=== PATIENT | male | born 1995 | race Caucasian/White ===

== ENCOUNTER 2016-06-18 22:59 | Emergency (ER) | payer OTHER ==
[~2016-06-18] VITALS: Ht 177.8 cm; Wt 63.5 kg
[~2016-06-18 22:59] MED LIST: MEDROL DOSEPAK4 MG PO; MOTRIN400 MG PO; MOTRIN800 MG PO; OMEPRAZOLE40 MG PO; TAMIFLU75 MG PO; TYLENOL W/CODEI1 TA2 PO; ZITHROMAX Z PA250 MG PO
[2016-06-18 23:48] LABS: BASO # 0.1 10*3/uL (0.0-0.1); BASO % 0.5 % (0.0-1.0); EOS # 0.2 10*3/uL (0.0-0.4); EOS % 1.4 % (1.0-4.0); HEMATOCRIT 42.1 % (42.0-52.0); HEMOGLOBIN 14.5 g/dl (14.0-18.0); IG # 0.1 10*3/uL (0.0-0.1); LYMPH # 1.8 10*3/uL (1.3-4.4); LYMPH % 15.9 % (27.0-41.0); MEAN CELL VOLUME 85.9 fl (80.0-94.0); MEAN CORPUSCULAR HGB 29.6 pg (27.0-31.0); MEAN CORPUSCULAR HGB CONC 34.4 g/dl (33.0-37.0); MEAN PLATELET VOLUME 9.2 fl (9.6-12.3); MONO # 1.1 10*3/uL (0.1-1.0); MONO % 10.1 % (3.0-9.0); NEUT # 7.9 10*3/uL (2.3-7.9); NEUT % 70.8 % (47.0-73.0); PLATELET COUNT AUTOMATED 192 10*3/uL (130-400); RED CELL DISTRI WIDTH 12.4 % (0-14.5); WHITE BLOOD COUNT 11.1 10*3/uL (4.8-10.8)
[2016-06-19 00:06] LABS: ALBUMIN 3.8 gm/dl (3.1-4.5); ALKALINE PHOSPHATASE 130 U/L (45-117); BILIRUBIN, TOTAL 0.3 mg/dl (0.2-1.0); BUN 9 mg/dl (7-24); CARBON DIOXIDE 25 mmol/L (21-32); CHLORIDE 103 mmol/L (98-107); CPK 209 U/L (39-308); EST GLOM FILT AFRICAN AMERICAN > 60 ml/min; GLUCOSE 85 mg/dL (65-99); POTASSIUM 3.3 mmol/L (3.5-5.1); SGOT/AST 69 IU/L (3-35); SGPT/ALT 89 U/L (12-78); SODIUM 140 mmol/L (136-145); TOTAL PROTEIN 8.1 gm/dL (6.4-8.2)
[2016-06-19 00:07] LABS: CKMB 2.5 ng/ml (0.5-3.6); TROPONIN I 0.018 ng/ml (<0.045)
[2016-06-19 00:24] LABS: BILIRUBIN NEGATIVE (NEGATIVE); BLOOD NEGATIVE (NEGATIVE); CLARITY CLEAR (CLEAR); COLOR YELLOW (YELLOW); GLUCOSE NEGATIVE (NEGATIVE); KETONE NEGATIVE (NEGATIVE); LEUKO ESTERASE NEGATIVE (NEGATIVE); NITRITE NEGATIVE (NEGATIVE); PROTEIN NEGATIVE (NEGATIVE); SPECIFIC GRAVITY <= 1.005 (1.005-1.030); UROBILINOGEN 0.2 E.U./dl (0.2-1.0)
[2016-06-19 00:34] LABS: URINE REFLEX COMMENT NO (NO)
[2016-06-19 00:37] LABS: URINE AMPHETAMINES < 1000 (1000ng/ml); URINE BARBITURATES < 200 (200ng/ml); URINE COCAINE > 300 (300ng/ml)
[2016-06-19 06:16] VITALS: BP 116/63
[2016-06-19] MEDS ORDERED: ZOFRAN ODT4 MG SL (08:55)
== END 2016-06-19 08:58 | disposition home or self-care (01) ==
LOC: ED 22:59
PROVIDERS: Physician Assistant
DX: F19.10 Other psychoactive substance abuse, uncomplicated (principal); F10.129 Alcohol abuse with intoxication, unspecified; F17.200 Nicotine dependence, unspecified, uncomplicated

== ENCOUNTER 2016-06-30 23:36 | Inpatient (IN) | payer OTHER ==
[~2016-06-30] VITALS: Ht 172.7 cm; Wt 64.6 kg
[~2016-06-30 23:36] MED LIST changes: +ZOFRAN ODT4 MG SL
[2016-06-30 23:41] VITALS: BP 145/84
[2016-07-01] VITALS (8 sets, daily range): BP systolic 93–136; BP diastolic 54–94
[2016-07-01 00:01] LABS: BILIRUBIN 1+ (NEGATIVE); BLOOD NEGATIVE (NEGATIVE); CLARITY CLEAR (CLEAR); COLOR YELLOW (YELLOW); GLUCOSE NEGATIVE (NEGATIVE); KETONE NEGATIVE (NEGATIVE); LEUKO ESTERASE NEGATIVE (NEGATIVE); NITRITE NEGATIVE (NEGATIVE); PROTEIN 1+ (NEGATIVE)
[2016-07-01 00:06] LABS: HEMATOCRIT 37.9 % (42.0-52.0); MEAN CELL VOLUME 86.5 fl (80.0-94.0); MEAN CORPUSCULAR HGB 29.7 pg (27.0-31.0); MEAN CORPUSCULAR HGB CONC 34.3 g/dl (33.0-37.0); MEAN PLATELET VOLUME 9.2 fl (9.6-12.3); PLATELET COUNT AUTOMATED 200 10*3/uL (130-400); RED BLOOD COUNT 4.38 10*6/uL (4.50-5.90); RED CELL DISTRI WIDTH 12.9 % (0-14.5); WHITE BLOOD COUNT 20.8 10*3/uL (4.8-10.8)
[2016-07-01 00:14] LABS: BACTERIA TRACE; URINE AMPHETAMINES < 1000 (1000ng/ml); URINE BARBITURATES < 200 (200ng/ml); URINE COCAINE < 300 (300ng/ml); URINE REFLEX COMMENT YES (NO); WBC 16-20 wbc/hpf (0-5)
[2016-07-01 00:20] LABS: ALBUMIN 3.3 gm/dl (3.1-4.5); ALKALINE PHOSPHATASE 218 U/L (45-117); BILIRUBIN, TOTAL 0.8 mg/dl (0.2-1.0); BUN 9 mg/dl (7-24); CARBON DIOXIDE 30 mmol/L (21-32); CHLORIDE 101 mmol/L (98-107); EST GLOM FILT AFRICAN AMERICAN > 60 ml/min; GLUCOSE 152 mg/dL (65-99); POTASSIUM 3.1 mmol/L (3.5-5.1); SGOT/AST 99 IU/L (3-35); SGPT/ALT 153 U/L (12-78); SODIUM 139 mmol/L (136-145); TOTAL PROTEIN 7.5 gm/dL (6.4-8.2)
[2016-07-01 00:25] LABS: EOSINOPHIL # 0.2 10*3/uL (0-0.4); EOSINOPHILS 1 % (1-4); LYMPHOCYTE # 1.2 10*3/uL (1.3-4.4); MONOCYTE # 1.9 10*3/uL (0.1-1.0); NEUTROPHIL # 17.5 10*3/uL (2.3-7.9); NEUTROPHILS 84 % (47-73); PLATELET SUFFICIENCY NORMAL (NORMAL); TOTAL CELLS COUNTED 100 #CELLS
[2016-07-01 02:51] LABS: LA>2 REFLEX 2 HR DRAW NOW
[2016-07-01 05:53] LABS: BASO # 0.1 10*3/uL (0.0-0.1); BASO % 0.3 % (0.0-1.0); EOS # 0.1 10*3/uL (0.0-0.4); EOS % 0.7 % (1.0-4.0); HEMATOCRIT 35.4 % (42.0-52.0); HEMOGLOBIN 11.7 g/dl (14.0-18.0); IG # 0.1 10*3/uL (0.0-0.1); LYMPH # 1.9 10*3/uL (1.3-4.4); MEAN CELL VOLUME 88.7 fl (80.0-94.0); MEAN CORPUSCULAR HGB 29.3 pg (27.0-31.0); MEAN CORPUSCULAR HGB CONC 33.1 g/dl (33.0-37.0); MEAN PLATELET VOLUME 10.1 fl (9.6-12.3); MONO # 1.3 10*3/uL (0.1-1.0); MONO % 8.1 % (3.0-9.0); NEUT # 12.1 10*3/uL (2.3-7.9); NEUT % 78.4 % (47.0-73.0); PLATELET COUNT AUTOMATED 187 10*3/uL (130-400); RED BLOOD COUNT 3.99 10*6/uL (4.50-5.90); RED CELL DISTRI WIDTH 12.9 % (0-14.5); WHITE BLOOD COUNT 15.5 10*3/uL (4.8-10.8)
[2016-07-01 06:11] LABS: ALBUMIN 2.9 gm/dl (3.1-4.5); ALKALINE PHOSPHATASE 187 U/L (45-117); BILIRUBIN, TOTAL 0.5 mg/dl (0.2-1.0); BUN 10 mg/dl (7-24); CARBON DIOXIDE 31 mmol/L (21-32); CHLORIDE 111 mmol/L (98-107); EST GLOM FILT AFRICAN AMERICAN > 60 ml/min; GLUCOSE 87 mg/dL (65-99); POTASSIUM 3.7 mmol/L (3.5-5.1); SGOT/AST 69 IU/L (3-35); SGPT/ALT 125 U/L (12-78); SODIUM 147 mmol/L (136-145); TOTAL PROTEIN 6.7 gm/dL (6.4-8.2)
[2016-07-02] VITALS: BP 114/51
[2016-07-02 07:07] LABS: HEPATITIS C VIRUS ANTIBODY <0.1 s/co (0.0-0.9); HIV 1+2 AB + HIV1 P24 AG Non Reactive (Non Reactive)
[2016-07-02 08:00] VITALS: BP 101/55
[2016-07-02 12:00] VITALS: BP 94/67
[2016-07-02 16:00] VITALS: BP 114/58
[2016-07-02 20:00] VITALS: BP 122/72
[2016-07-03] VITALS: BP 111/57
[2016-07-03 08:00] VITALS: BP 95/51
[2016-07-03 12:00] VITALS: BP 102/57
[2016-07-03 16:00] VITALS: BP 130/66
[2016-07-03 20:00] VITALS: BP 106/58
[2016-07-04] VITALS: BP 120/65
[2016-07-04 08:00] VITALS: BP 110/60
[2016-07-04] MEDS ORDERED: METHOCARBAMOL750 M1 PO (11:07)
[2016-07-04] MEDS ORDERED: ATARAX,VISTARIL50 MG PO (11:07)
[2016-07-04] MEDS ORDERED: SINEMET 25-1001 TA1 PO (11:12)
== END 2016-07-04 11:40 | disposition home or self-care (01) | DRG 897 ==
LOC: ED 23:36 → EDHOLD 07-01 01:06 → 5E 07-01 01:06
PROVIDERS: Hospitalist; Nurse Practitioner Family
DX: F11.23 Opioid dependence with withdrawal (principal); E87.2 Acidosis; D72.829 Elevated white blood cell count, unspecified; F17.200 Nicotine dependence, unspecified, uncomplicated; F19.10 Other psychoactive substance abuse, uncomplicated; Z82.49 Family history of ischemic heart disease and other diseases of the circulatory system

== ENCOUNTER 2016-07-11 15:56 | Inpatient (IN) | payer OTHER ==
[~2016-07-11] VITALS: Ht 172.7 cm; Wt 60.5 kg
--- NOTE | ~2016-07-11 | CON ---
[place], [place] REPORT OF CONSULTATION NAME: NICA MCGOVERN UNIT #: [id number] ROOM: [id number] DOCTOR: NICKIE BOYD ED.D (STEPHAN) BIRTHDATE: [birth year] DOS: 07/12/2016 HISTORY OF PRESENT ILLNESS: The patient is a 20-year-old male referred by the hospitalist for psychological evaluation. At the present time, this patient is a [facility] patient here at [facility] on 5th floor. This patient is single and has no children. His parents are both living and he has one sister. He was formerly working at [employer], but has recently been laid off. He does not have a family physician. His medical history is pertinent for opiate withdrawal, opiate dependence, crack cocaine abuse and tobacco abuse. He denies any drug allergies. He states he is not taking any regular medications. This patient was awake, alert and oriented in all 3 spheres and denied any suicidal ideation or plan. He did not have any active hallucinations or delusional thoughts. States he was discharged from [facility] approximately 1 week ago, but after he went home, he used crack cocaine. He then came back to the hospital for further treatment and followup treatment. He would like to go to "[facility]" for treatment after he is discharged from the hospital. He is very willing to get treatment. Dr. Infante did diagnose this patient with bipolar disorder and prescribed Lamictal and Celexa but at this point in time I am not willing to recommend any kind of medications until he is through withdrawal. In my opinion, he should follow up outpatient with psychotherapy and medication management once he is discharged. DIAGNOSES: 1. Opiate addiction. 2. Opiate withdrawal. 3. Cocaine abuse. RECOMMENDATIONS: The patient should follow up outpatient with substance abuse treatment as well as mental health treatment. Thank you very much for this consult. NICKIE BOYD ED.D CM:CONSTR:REPORT OF CONSULTATION 1131 07/13/16 [id number]
[~2016-07-11 15:56] MED LIST changes: +ATARAX,VISTARIL50 MG PO; +METHOCARBAMOL750 M1 PO; +SINEMET 25-1001 TA1 PO
[2016-07-11 16:00] VITALS: BP 119/77
[2016-07-11 17:00] VITALS: BP 119/77
[2016-07-11 17:25] LABS: BASO % 0.5 % (0.0-1.0); EOS # 0.1 10*3/uL (0.0-0.4); EOS % 1.2 % (1.0-4.0); HEMATOCRIT 41.9 % (42.0-52.0); HEMOGLOBIN 14.1 g/dl (14.0-18.0); IG # 0.1 10*3/uL (0.0-0.1); LYMPH # 1.6 10*3/uL (1.3-4.4); LYMPH % 21.2 % (27.0-41.0); MEAN CELL VOLUME 87.7 fl (80.0-94.0); MEAN CORPUSCULAR HGB 29.5 pg (27.0-31.0); MEAN CORPUSCULAR HGB CONC 33.7 g/dl (33.0-37.0); MEAN PLATELET VOLUME 9.4 fl (9.6-12.3); MONO # 0.6 10*3/uL (0.1-1.0); MONO % 8.3 % (3.0-9.0); NEUT # 5.1 10*3/uL (2.3-7.9); NEUT % 68.1 % (47.0-73.0); PLATELET COUNT AUTOMATED 286 10*3/uL (130-400); RED BLOOD COUNT 4.78 10*6/uL (4.50-5.90); RED CELL DISTRI WIDTH 13.1 % (0-14.5); WHITE BLOOD COUNT 7.5 10*3/uL (4.8-10.8)
[2016-07-11 17:32] LABS: PROTHROMBIN TIME 10.9 SECONDS (9.0-12.4)
[2016-07-11 17:45] LABS: ALKALINE PHOSPHATASE 146 U/L (45-117); BILIRUBIN, TOTAL 0.4 mg/dl (0.2-1.0); BUN 13 mg/dl (7-24); CARBON DIOXIDE 25 mmol/L (21-32); CHLORIDE 109 mmol/L (98-107); EST GLOM FILT AFRICAN AMERICAN > 60 ml/min; GLUCOSE 96 mg/dL (65-99); SGOT/AST 26 IU/L (3-35); SODIUM 142 mmol/L (136-145); TOTAL PROTEIN 8.5 gm/dL (6.4-8.2)
[2016-07-11 17:48] LABS: SGPT/ALT 18 U/L (12-78)
[2016-07-11 20:00] VITALS: BP 134/77
[2016-07-11 21:31] LABS: BILIRUBIN NEGATIVE (NEGATIVE); BLOOD NEGATIVE (NEGATIVE); CLARITY SL CLOUDY (CLEAR); COLOR YELLOW (YELLOW); GLUCOSE NEGATIVE (NEGATIVE); KETONE NEGATIVE (NEGATIVE); LEUKO ESTERASE NEGATIVE (NEGATIVE); NITRITE NEGATIVE (NEGATIVE); PH 5.5 (5.0-9.0); PROTEIN TRACE (NEGATIVE); SPECIFIC GRAVITY >= 1.030 (1.005-1.030); UROBILINOGEN 0.2 E.U./dl (0.2-1.0)
[2016-07-11 21:37] LABS: RBC 0-2 rbc/hpf (0-2)
[2016-07-11 21:38] LABS: BACTERIA TRACE; EPITHELIAL CELLS 0-2; URINE REFLEX COMMENT YES (NO)
[2016-07-11 21:39] LABS: URINE AMPHETAMINES < 1000 (1000ng/ml); URINE BARBITURATES < 200 (200ng/ml); URINE COCAINE > 300 (300ng/ml)
[2016-07-12 04:00] VITALS: BP 127/69
[2016-07-12 07:58] VITALS: BP 106/62
[2016-07-12 12:00] VITALS: BP 115/66
[2016-07-12 16:00] VITALS: BP 118/56
[2016-07-12 20:00] VITALS: BP 106/62
[2016-07-13] VITALS: BP 104/51
[2016-07-13 08:00] VITALS: BP 107/50
== END 2016-07-13 10:43 | disposition left against medical advice (07) | DRG 894 ==
LOC: 5E 15:56
PROVIDERS: Internal Medicine Hospice and Palliative Medicine
DX: F11.23 Opioid dependence with withdrawal (principal); F14.10 Cocaine abuse, uncomplicated; Z53.21 Procedure and treatment not carried out due to patient leaving prior to being seen by health care provider; F41.9 Anxiety disorder, unspecified; G25.81 Restless legs syndrome; F17.200 Nicotine dependence, unspecified, uncomplicated; L40.9 Psoriasis, unspecified; Z71.6 Tobacco abuse counseling; Z82.49 Family history of ischemic heart disease and other diseases of the circulatory system

== ENCOUNTER 2016-07-23 01:17 | Emergency (ER) | payer OTHER ==
[~2016-07-23] VITALS: Ht 172.7 cm; Wt 59.0 kg
[2016-07-23 02:29] VITALS: BP 112/75
== END 2016-07-23 03:20 | disposition home or self-care (01) ==
LOC: ED 01:17
DX: T40.4X1A Poisoning by other synthetic narcotics, accidental (unintentional), initial encounter (principal); Y92.9 Unspecified place or not applicable; F41.9 Anxiety disorder, unspecified; F17.200 Nicotine dependence, unspecified, uncomplicated

== ENCOUNTER 2019-04-06 22:18 | Emergency (ER) | payer OTHER ==
[~2019-04-06] VITALS: Ht 175.2 cm; Wt 68.0 kg
[2019-04-06 22:56] LABS: BASO % 0.3 % (0.0-1.0); EOS # 0.2 10*3/uL (0.0-0.4); EOS % 1.4 % (1.0-4.0); HEMATOCRIT 41.1 % (42.0-52.0); HEMOGLOBIN 13.8 g/dl (14.0-18.0); LYMPH # 1.8 10*3/uL (1.3-4.4); MEAN CELL VOLUME 90.1 fl (80.0-94.0); MEAN CORPUSCULAR HGB 30.3 pg (27.0-31.0); MEAN CORPUSCULAR HGB CONC 33.6 g/dl (33.0-37.0); MEAN PLATELET VOLUME 10.8 fl (9.6-12.3); MONO # 0.6 10*3/uL (0.1-1.0); MONO % 5.3 % (3.0-9.0); NEUT # 9.2 10*3/uL (2.3-7.9); NEUT % 77.6 % (47.0-73.0); PLATELET COUNT AUTOMATED 210 10*3/uL (130-400); RED BLOOD COUNT 4.56 10*6/uL (4.50-5.90); RED CELL DISTRI WIDTH 11.9 % (0-14.5); WHITE BLOOD COUNT 11.8 10*3/uL (4.8-10.8)
[2019-04-06 23:11] LABS: ALBUMIN 4.3 gm/dl (3.1-4.5); ALKALINE PHOSPHATASE 81 U/L (45-117); BUN 12 mg/dl (7-24); CHLORIDE 102 mmol/L (98-107); CREATININE 1.13 mg/dL (0.70-1.30); POTASSIUM 3.7 mmol/L (3.5-5.1); SGOT/AST 37 IU/L (3-35); SGPT/ALT 74 U/L (12-78); SODIUM 137 mmol/L (136-145); TOTAL PROTEIN 7.4 gm/dL (6.4-8.2)
[2019-04-06 23:13] LABS: ACETAMINOPHEN (TYLENOL) < 5.0 ug/ml (10-30); ETHYL ALCOHOL < 3.0 mg/dl (<3)
[2019-04-06 23:46] LABS: URINE AMPHETAMINES < 1000 (1000ng/ml); URINE BARBITURATES < 200 (200ng/ml); URINE BENZODIAZEPINES < 200 (200ng/ml); URINE CANNABINOIDS (THC) < 50 (50ng/ml); URINE COCAINE < 300 (300ng/ml); URINE METHADONE < 300 (300ng/ml); URINE OPIATES > 300 (300ng/ml)
[2019-04-06 23:48] LABS: URINE PHENCYCLIDINE < 25 (25ng/ml)
[2019-04-07 00:07] LABS: BILIRUBIN NEGATIVE (NEGATIVE); BLOOD NEGATIVE (NEGATIVE); CLARITY CLEAR (CLEAR); COLOR YELLOW (YELLOW); GLUCOSE NEGATIVE (NEGATIVE); KETONE TRACE (NEGATIVE); LEUKO ESTERASE NEGATIVE (NEGATIVE); NITRITE NEGATIVE (NEGATIVE); UROBILINOGEN 0.2 E.U./dl (0.2-1.0)
[2019-04-07 00:08] LABS: HYALINE CAST 15-20
[2019-04-07 00:27] VITALS: BP 133/70
== END 2019-04-07 00:40 | disposition home or self-care (01) ==
LOC: ED 22:18
PROVIDERS: Emergency Medicine Emergency Medical Services
DX: T40.1X1A Poisoning by heroin, accidental (unintentional), initial encounter (principal); F41.9 Anxiety disorder, unspecified; F17.200 Nicotine dependence, unspecified, uncomplicated; F32.9 Major depressive disorder, single episode, unspecified; Y92.89 Other specified places as the place of occurrence of the external cause

== ENCOUNTER → 2020-11-25 | Outpatient (CLI) | payer OTHER | END | disposition home or self-care (01) | LOC: COVID19 17:15 | PROVIDERS: ATTEND Internal Medicine | DX: Z11.52 Encounter for screening for COVID-19 (principal) ==

== ENCOUNTER → 2021-01-20 | Outpatient (CLI) | payer OTHER | END | disposition home or self-care (01) | LOC: COVID19 17:21 | PROVIDERS: ATTEND Internal Medicine | DX: Z11.52 Encounter for screening for COVID-19 (principal) ==